=== PATIENT | male | born 1965 | race African-American/Black ===

== ENCOUNTER 2019-10-10 13:57 | Inpatient (IN) ==
[2019-10-10] MEDS ORDERED: ceFAZolin 1,000 MG VIAL IM ONE (14:18)
[2019-10-10] MEDS ORDERED: VANCOMYCIN INJ 1,000 MG in SODIUM CHLORIDE 0.9% 250 ML IV STA (14:30)
[2019-10-10 15:17] LABS: Basophils % 0.7 % (0.0-0.8); Eosinophils # 0.3 10*3/uL (0.0-0.87); Eosinophils % 4.8 % (0.00-10.9); Hematocrit 25.4 VOL% (42.0-52.0); Hemoglobin 8.1 GM/DL (14.0-18.0); Immature Granulocytes % 0.2 %; Immature Granulocytes Absolute 0.01 #; Lymphocytes # 0.7 10*3/uL (1.4-4.0); Lymphocytes % 10.7 % (21.2-54.2); Mean Corpuscular HGB Conc 31.9 GM/DL (32-36); Mean Corpuscular Volume 91.7 FL (87-102); Mean Platelet Volume 11.4 FL (9.6-12.0); Monocytes % 11.2 % (1.7-12.7); Neutrophils % 72.4 % (38.7-73.9); Platelet Count 139 T/CUMM (130-400); Red Blood Count 2.77 MC/CUMM (3.8-5.5); Red Cell Distribution Width 15.8 % (9.3-17.3); White Blood Count 6.1 T/CUMM (4-12)
[2019-10-10] MEDS ORDERED: VANCOMYCIN INJ 1,500 MG in SODIUM CHLORIDE 0.9% 250 ML IV SCH (15:30)
[2019-10-10] MEDS ORDERED: PIPERACILLIN/TAZOBACTAM 3,375 MG in SODIUM CHLORIDE 0.9% 100 ML IV SCH (15:30)
[2019-10-10] MEDS ORDERED: hydrALAZINE 20 MG/1 ML VIAL IV PRN (15:36)
[2019-10-10 15:44] LABS: Albumin 2.8 G/DL (3.4-5.0); Bilirubin,Total 0.5 MG/DL (0.2-1.0); Calcium 8.1 MG/DL (8.5-10.1); Osmolality,Calculated 288.3 MOS/KG (273-304); Total Protein 7.3 G/DL (6.4-8.3)
[2019-10-10] MEDS ORDERED: VANCOMYCIN INJ 750 MG in SODIUM CHLORIDE 0.9% 250 ML IV PRN (16:39)
[2019-10-10] MEDS ORDERED: VANCOMYCIN INJ 1,000 MG in SODIUM CHLORIDE 0.9% 250 ML IV ONE (17:00)
[2019-10-10] MEDS: PIPERACILLIN/TAZOBACTAM 3,375 MG in SODIUM CHLORIDE 0.9% 100 ML IV SCH (18:06)
[2019-10-10] MEDS: CYANOCOBALAMIN 500 MCG TABLET PO SCH (20:33)
[2019-10-10] MEDS: METOPROLOL TARTRATE 50 MG TABLET PO SCH (20:33)
[2019-10-10] MEDS: MINOXIDIL 2.5 MG TABLET PO SCH (20:33)
[2019-10-10] MEDS: HEPARIN 5,000 UNIT/1 ML VIAL SUBCUT SCH (20:33)
[2019-10-10 22:20] LABS: Apearance,Urine CLEAR (Clear); Bilirubin,Urine Negative (Negative); Blood, Urine Negative (Negative); Glucose,Urine (UA) 50 mg/dL (Negative); Ketones,Urine Negative (Negative); Nitrite,Urine Negative (Negative); Protein,Urine 100 MG/DL; RBC,Urine 1 /HPF (0-4); Urine Color Yellow (Yellow); Urine Specific Gravity 1.009 (1.001-1.035); Urine Urobilinogen < 2.0 EU/DL (0.2-1.0); WBC,Urine 2 /HPF (0-6)
[2019-10-11] MEDS: PIPERACILLIN/TAZOBACTAM 3,375 MG in SODIUM CHLORIDE 0.9% 100 ML IV SCH ×2 (05:27→18:25)
[2019-10-11 05:57] LABS: Basophils % 0.8 % (0.0-0.8); Eosinophils # 0.4 10*3/uL (0.0-0.87); Eosinophils % 8.5 % (0.00-10.9); Hematocrit 24.3 VOL% (42.0-52.0); Hemoglobin 7.8 GM/DL (14.0-18.0); Immature Granulocytes % 0.2 %; Immature Granulocytes Absolute 0.01 #; Lymphocytes # 0.7 10*3/uL (1.4-4.0); Lymphocytes % 12.9 % (21.2-54.2); Mean Corpuscular HGB Conc 32.1 GM/DL (32-36); Mean Corpuscular Volume 91.4 FL (87-102); Mean Platelet Volume 11.9 FL (9.6-12.0); Neutrophils % 65.6 % (38.7-73.9); Platelet Count 146 T/CUMM (130-400); Red Blood Count 2.66 MC/CUMM (3.8-5.5); Red Cell Distribution Width 15.4 % (9.3-17.3); White Blood Count 5.2 T/CUMM (4-12)
[2019-10-11 06:28] LABS: Alanine Aminotransferase < 9 U/L (16-61); Albumin 2.6 G/DL (3.4-5.0); Alkaline Phosphatase 57 U/L (45-117); Aspartate Amino Transferase 7 U/L (0-37); Blood Urea Nitrogen 43 MG/DL (7-18); Calcium 7.7 MG/DL (8.5-10.1); Estimated Glom Filtration Rate 6 ML/MIN; Glucose 81 MG/DL (74-106); Osmolality,Calculated 292.1 MOS/KG (273-304); Total Protein 6.8 G/DL (6.4-8.3)
[2019-10-11] MEDS ORDERED: SODIUM CHLORIDE 0.9% 1,000 ML IV PRN ×2 (09:06→09:09)
[2019-10-11] MEDS: HEPARIN 5,000 UNIT/1 ML VIAL SUBCUT SCH ×2 (11:37→21:13)
[2019-10-11] MEDS: LOSARTAN 50 MG TABLET PO SCH (14:59)
[2019-10-11] MEDS: MINOXIDIL 2.5 MG TABLET PO SCH ×2 (14:59→21:11)
[2019-10-11] MEDS: METOPROLOL TARTRATE 50 MG TABLET PO SCH ×2 (15:00→21:11)
[2019-10-11] MEDS: CYANOCOBALAMIN 500 MCG TABLET PO SCH ×2 (15:00→21:11)
[2019-10-11] MEDS ORDERED: EPOETIN ALFA 10,000 UNIT/1 ML VIAL IV PRN (15:45)
[2019-10-12 05:42] LABS: Basophils % 0.6 % (0.0-0.8); Eosinophils # 0.4 10*3/uL (0.0-0.87); Eosinophils % 7.8 % (0.00-10.9); Hematocrit 24.2 VOL% (42.0-52.0); Hemoglobin 7.6 GM/DL (14.0-18.0); Immature Granulocytes % 0.4 %; Immature Granulocytes Absolute 0.02 #; Lymphocytes # 0.9 10*3/uL (1.4-4.0); Lymphocytes % 17.4 % (21.2-54.2); Mean Corpuscular HGB Conc 31.4 GM/DL (32-36); Mean Corpuscular Volume 91.3 FL (87-102); Mean Platelet Volume 11.5 FL (9.6-12.0); Monocytes % 9.6 % (1.7-12.7); Neutrophils % 64.2 % (38.7-73.9); Platelet Count 160 T/CUMM (130-400); Red Blood Count 2.65 MC/CUMM (3.8-5.5); Red Cell Distribution Width 15.3 % (9.3-17.3)
[2019-10-12 06:06] LABS: Alanine Aminotransferase < 9 U/L (16-61); Albumin 2.3 G/DL (3.4-5.0); Alkaline Phosphatase 66 U/L (45-117); Aspartate Amino Transferase 5 U/L (0-37); Blood Urea Nitrogen 51 MG/DL (7-18); Calcium 7.9 MG/DL (8.5-10.1); Estimated Glom Filtration Rate 5 ML/MIN; Glucose 86 MG/DL (74-106); Total Protein 6.5 G/DL (6.4-8.3)
[2019-10-12] MEDS: PIPERACILLIN/TAZOBACTAM 3,375 MG in SODIUM CHLORIDE 0.9% 100 ML IV SCH ×2 (06:16→19:36)
[2019-10-12] MEDS: HEPARIN 5,000 UNIT/1 ML VIAL SUBCUT SCH ×2 (08:21→19:34)
[2019-10-12] MEDS: CYANOCOBALAMIN 500 MCG TABLET PO SCH ×2 (08:21→21:19)
[2019-10-12 10:39] LABS: % Iron Saturation 53.7 % (18-50); Ferritin 815.7 ng/ml (26-388)
[2019-10-12 11:21] LABS: Hepatitis B Surface Ag Quant < 0.10 Index; Hepatitis B Surface Ag Result Negative (Negative)
[2019-10-12] MEDS: CALCIUM ACETATE 667 MG CAPSULE PO SCH ×2 (13:04→17:56)
[2019-10-12] MEDS ORDERED: VANCOMYCIN INJ 750 MG in SODIUM CHLORIDE 0.9% 250 ML IV ONE (17:00)
[2019-10-12] MEDS: METOPROLOL TARTRATE 50 MG TABLET PO SCH ×2 (17:50→21:19)
[2019-10-12] MEDS: MINOXIDIL 2.5 MG TABLET PO SCH ×2 (17:55→21:19)
[2019-10-12] MEDS: LOSARTAN 50 MG TABLET PO SCH (17:57)
[2019-10-13 05:33] LABS: Basophils % 0.8 % (0.0-0.8); Eosinophils # 0.4 10*3/uL (0.0-0.87); Eosinophils % 8.6 % (0.00-10.9); Hematocrit 28.9 VOL% (42.0-52.0); Immature Granulocytes % 0.2 %; Immature Granulocytes Absolute 0.01 #; Lymphocytes # 0.7 10*3/uL (1.4-4.0); Lymphocytes % 14.6 % (21.2-54.2); Mean Corpuscular HGB Conc 32.2 GM/DL (32-36); Mean Corpuscular Volume 88.9 FL (87-102); Mean Platelet Volume 11.4 FL (9.6-12.0); Neutrophils % 64.8 % (38.7-73.9); Platelet Count 171 T/CUMM (130-400); Red Cell Distribution Width 15.2 % (9.3-17.3); White Blood Count 4.7 T/CUMM (4-12)
[2019-10-13 06:00] LABS: Alanine Aminotransferase < 6 U/L (16-61); Albumin 2.3 G/DL (3.4-5.0); Alkaline Phosphatase 62 U/L (45-117); Aspartate Amino Transferase 6 U/L (0-37); Blood Urea Nitrogen 31 MG/DL (7-18); Calcium 8.4 MG/DL (8.5-10.1); Estimated Glom Filtration Rate 7 ML/MIN; Glucose 93 MG/DL (74-106); Osmolality,Calculated 274.2 MOS/KG (273-304); Total Protein 6.9 G/DL (6.4-8.3)
[2019-10-13] MEDS: PIPERACILLIN/TAZOBACTAM 3,375 MG in SODIUM CHLORIDE 0.9% 100 ML IV SCH (06:01)
[2019-10-13 06:07] LABS: Red Blood Count 3.25 MC/CUMM (3.8-5.5)
[2019-10-13 06:08] LABS: Hemoglobin 9.3 GM/DL (14.0-18.0)
[2019-10-13] MEDS ORDERED: LEVOFLOXACIN INJ 500 MG in PREMIX 1 EACH IV SCH ×2 (07:00→10:00)
[2019-10-13] MEDS: CYANOCOBALAMIN 500 MCG TABLET PO SCH ×2 (08:34→20:30)
[2019-10-13] MEDS: LOSARTAN 50 MG TABLET PO SCH (08:35)
[2019-10-13] MEDS: CALCIUM ACETATE 667 MG CAPSULE PO SCH ×3 (08:35→17:33)
[2019-10-13] MEDS: METOPROLOL TARTRATE 50 MG TABLET PO SCH ×2 (08:35→20:29)
[2019-10-13] MEDS: MINOXIDIL 2.5 MG TABLET PO SCH ×2 (08:36→20:29)
[2019-10-13] MEDS: HEPARIN 5,000 UNIT/1 ML VIAL SUBCUT SCH ×2 (10:15→20:30)
[2019-10-14 06:59] LABS: Basophils % 0.8 % (0.0-0.8); Eosinophils # 0.4 10*3/uL (0.0-0.87); Eosinophils % 7.8 % (0.00-10.9); Hematocrit 27.2 VOL% (42.0-52.0); Immature Granulocytes % 0.2 %; Immature Granulocytes Absolute 0.01 #; Lymphocytes # 0.8 10*3/uL (1.4-4.0); Lymphocytes % 17.3 % (21.2-54.2); Mean Corpuscular HGB Conc 33.1 GM/DL (32-36); Mean Corpuscular Volume 88.6 FL (87-102); Mean Platelet Volume 10.2 FL (9.6-12.0); Monocytes % 11.2 % (1.7-12.7); Neutrophils % 62.7 % (38.7-73.9); Platelet Count 158 T/CUMM (130-400); Red Blood Count 3.07 MC/CUMM (3.8-5.5); White Blood Count 4.7 T/CUMM (4-12)
[2019-10-14 07:34] LABS: Albumin 2.3 G/DL (3.4-5.0); Bilirubin,Total 0.4 MG/DL (0.2-1.0); Osmolality,Calculated 281.8 MOS/KG (273-304); Total Protein 6.8 G/DL (6.4-8.3)
[2019-10-14] MEDS: CALCIUM ACETATE 667 MG CAPSULE PO SCH ×3 (09:12→16:48)
[2019-10-14] MEDS: CYANOCOBALAMIN 500 MCG TABLET PO SCH ×2 (09:13→21:03)
[2019-10-14] MEDS: MINOXIDIL 2.5 MG TABLET PO SCH ×2 (09:13→21:03)
[2019-10-14] MEDS: METOPROLOL TARTRATE 50 MG TABLET PO SCH ×2 (09:13→21:03)
[2019-10-14] MEDS: LOSARTAN 50 MG TABLET PO SCH (09:13)
[2019-10-14] MEDS: HEPARIN 5,000 UNIT/1 ML VIAL SUBCUT SCH ×2 (09:22→21:03)
[2019-10-14] MEDS ORDERED: ceFAZolin 2,000 MG in PREMIX 1 EACH IV ONE (10:00)
[2019-10-15] MEDS: CALCIUM ACETATE 667 MG CAPSULE PO SCH ×2 (08:34→13:48)
[2019-10-15] MEDS: MINOXIDIL 2.5 MG TABLET PO SCH (08:34)
[2019-10-15] MEDS: LOSARTAN 50 MG TABLET PO SCH (08:34)
[2019-10-15] MEDS: METOPROLOL TARTRATE 50 MG TABLET PO SCH (08:35)
[2019-10-15] MEDS: CYANOCOBALAMIN 500 MCG TABLET PO SCH (08:35)
[2019-10-15] MEDS: HEPARIN 5,000 UNIT/1 ML VIAL SUBCUT SCH (08:36)
[2019-10-15 16:53] VITALS: BP 160/72
[2019-10-15] MEDS ORDERED: ceFAZolin 2,000 MG in PREMIX 1 EACH IV SCH (17:00)
[2019-10-19] MEDS ORDERED: ceFAZolin 3,000 MG in SYRINGE 1 EACH IV SCH (17:00)
== END 2019-10-15 16:25 | disposition home or self-care (01) | DRG 727 ==
LOC: N.EDINP 13:57 → N.ED 13:57 → N.5E 16:30
PROVIDERS: ADMIT Internal Medicine; ATTEND Internal Medicine

== ENCOUNTER 2020-01-23 19:55 | Inpatient (IN) ==
[2020-01-24 01:44] LABS: Basophils % 0.6 % (0.0-0.8); Eosinophils # 0.4 10*3/uL (0.0-0.87); Eosinophils % 7.8 % (0.00-10.9); Hematocrit 20.7 VOL% (42.0-52.0); Immature Granulocytes % 0.2 %; Immature Granulocytes Absolute 0.01 #; Lymphocytes # 0.8 10*3/uL (1.4-4.0); Lymphocytes % 16.6 % (21.2-54.2); Monocytes % 10.8 % (1.7-12.7); Platelet Count 186 T/CUMM (130-400); Red Blood Count 2.09 MC/CUMM (3.8-5.5); Red Cell Distribution Width 16.7 % (9.3-17.3)
[2020-01-24 01:47] LABS: Hemoglobin 6.2 GM/DL (14.0-18.0)
[2020-01-24 01:59] LABS: Alanine Aminotransferase 15 U/L (16-61); Albumin 2.8 G/DL (3.4-5.0); Alkaline Phosphatase 63 U/L (45-117); Aspartate Amino Transferase 13 U/L (0-37); Bilirubin,Total < 0.39 MG/DL (0.2-1.0); Blood Urea Nitrogen 24 MG/DL (7-18); Calcium 9.1 MG/DL (8.5-10.1); Estimated Glom Filtration Rate 12 ML/MIN; Glucose 92 MG/DL (74-106); Osmolality,Calculated 286.1 MOS/KG (273-304); Total Protein 6.1 G/DL (6.4-8.3)
[2020-01-24] MEDS ORDERED: ONDANSETRON 4 MG/2 ML VIAL IV PRN (04:19)
[2020-01-24] MEDS ORDERED: ACETAMINOPHEN 325 MG TABLET PO PRN (04:19)
[2020-01-24] MEDS ORDERED: SODIUM CHLORIDE 0.9% 1,000 ML IV PRN (04:22)
[2020-01-24] MEDS ORDERED: Ferric Citrate [Auryxia] 420 MG PO SCH (08:00)
[2020-01-24] MEDS: LOSARTAN 50 MG TABLET PO SCH (12:03)
[2020-01-24] MEDS: PANTOPRAZOLE 40 MG TABLET PO SCH (12:03)
[2020-01-24] MEDS: minoxidiL 2.5 MG TABLET PO SCH ×2 (12:04→22:02)
[2020-01-24] MEDS: METOPROLOL TARTRATE 50 MG TABLET PO SCH ×2 (12:04→22:01)
[2020-01-24] MEDS: CYANOCOBALAMIN 500 MCG TABLET PO SCH ×2 (12:05→22:01)
[2020-01-24 18:46] LABS: Hematocrit 23.1 VOL% (42.0-52.0); Hemoglobin 7.3 GM/DL (14.0-18.0)
[2020-01-25 06:34] LABS: Basophils % 0.6 % (0.0-0.8); Eosinophils # 0.4 10*3/uL (0.0-0.87); Eosinophils % 7.2 % (0.00-10.9); Hematocrit 24.1 VOL% (42.0-52.0); Hemoglobin 7.5 GM/DL (14.0-18.0); Immature Granulocytes % 0.4 %; Immature Granulocytes Absolute 0.02 #; Lymphocytes # 0.4 10*3/uL (1.4-4.0); Lymphocytes % 7.4 % (21.2-54.2); Mean Corpuscular HGB Conc 31.1 GM/DL (32-36); Mean Corpuscular Volume 95.6 FL (87-102); Monocytes % 10.2 % (1.7-12.7); Neutrophils % 74.2 % (38.7-73.9); Platelet Count 130 T/CUMM (130-400); Red Blood Count 2.52 MC/CUMM (3.8-5.5); Red Cell Distribution Width 16.2 % (9.3-17.3); White Blood Count 5.1 T/CUMM (4-12)
[2020-01-25] MEDS: CYANOCOBALAMIN 500 MCG TABLET PO SCH ×2 (08:08→20:26)
[2020-01-25] MEDS: minoxidiL 2.5 MG TABLET PO SCH ×2 (08:08→20:26)
[2020-01-25] MEDS: METOPROLOL TARTRATE 50 MG TABLET PO SCH ×2 (08:08→20:26)
[2020-01-25] MEDS: LOSARTAN 50 MG TABLET PO SCH (08:09)
[2020-01-25] MEDS: PANTOPRAZOLE 40 MG TABLET PO SCH (08:09)
[2020-01-25] MEDS ORDERED: HEPARIN 10,000 UNIT/10 ML VIAL IV SCH (15:00)
[2020-01-26 05:28] LABS: Basophils % 0.4 % (0.0-0.8); Eosinophils # 0.3 10*3/uL (0.0-0.87); Eosinophils % 6.9 % (0.00-10.9); Hematocrit 21.8 VOL% (42.0-52.0); Hemoglobin 7.1 GM/DL (14.0-18.0); Immature Granulocytes % 0.4 %; Immature Granulocytes Absolute 0.02 #; Lymphocytes # 0.5 10*3/uL (1.4-4.0); Lymphocytes % 11.5 % (21.2-54.2); Mean Corpuscular HGB Conc 32.6 GM/DL (32-36); Mean Corpuscular Volume 92.8 FL (87-102); Mean Platelet Volume 10.5 FL (9.6-12.0); Monocytes % 10.8 % (1.7-12.7); Platelet Count 111 T/CUMM (130-400); Red Blood Count 2.35 MC/CUMM (3.8-5.5); Red Cell Distribution Width 15.7 % (9.3-17.3); White Blood Count 4.6 T/CUMM (4-12)
[2020-01-26 05:45] LABS: Calcium 8.7 MG/DL (8.5-10.1); Osmolality,Calculated 277.8 MOS/KG (273-304)
[2020-01-26] MEDS: BISACODYL 5 MG TABLET PO SCH ×3 (06:45→22:12)
[2020-01-26] MEDS: METOPROLOL TARTRATE 50 MG TABLET PO SCH ×2 (08:58→20:31)
[2020-01-26] MEDS: PANTOPRAZOLE 40 MG TABLET PO SCH (08:59)
[2020-01-26] MEDS: minoxidiL 2.5 MG TABLET PO SCH ×2 (08:59→20:31)
[2020-01-26] MEDS: CYANOCOBALAMIN 500 MCG TABLET PO SCH ×2 (08:59→20:31)
[2020-01-26] MEDS: LOSARTAN 50 MG TABLET PO SCH (08:59)
[2020-01-26] MEDS ORDERED: SODIUM CHLORIDE 0.9% 1,000 ML IV PRN (10:37)
[2020-01-26] MEDS ORDERED: POLYETHYLENE GLYCOL 3350/ELECTROLYTES 4,000 ML BOTTLE PO ONE (14:00)
[2020-01-26] MEDS: guaiFENesin 200 MG/10 ML UDCUP PO PRN ×3 (14:31→22:27)
[2020-01-26] MEDS ORDERED: MAGNESIUM CITRATE 300 ML BOTTLE PO ONE (21:00)
[2020-01-27 01:12] LABS: Calcium 8.4 MG/DL (8.5-10.1)
[2020-01-27 01:15] LABS: Basophils % 0.4 % (0.0-0.8); Eosinophils # 0.2 10*3/uL (0.0-0.87); Eosinophils % 3.3 % (0.00-10.9); Hematocrit 25.1 VOL% (42.0-52.0); Hematocrit 26.3 VOL% (42.0-52.0); Hemoglobin 8.3 GM/DL (14.0-18.0); Immature Granulocytes % 0.1 %; Immature Granulocytes Absolute 0.01 #; Lymphocytes # 0.4 10*3/uL (1.4-4.0); Lymphocytes % 5.8 % (21.2-54.2); Mean Corpuscular HGB Conc 31.6 GM/DL (32-36); Mean Corpuscular Volume 93.3 FL (87-102); Mean Platelet Volume 10.4 FL (9.6-12.0); Monocytes % 9.1 % (1.7-12.7); Neutrophils % 81.3 % (38.7-73.9); Platelet Count 103 T/CUMM (130-400); Red Blood Count 2.82 MC/CUMM (3.8-5.5); Red Cell Distribution Width 15.7 % (9.3-17.3); White Blood Count 6.9 T/CUMM (4-12)
[2020-01-27] MEDS: SODIUM CHLORIDE 0.9% 1,000 ML IV SCH (07:25)
[2020-01-27] MEDS ORDERED: LIDOCAINE 2% 5 ML VIAL ONE (09:00)
[2020-01-27] MEDS ORDERED: propofoL 200 MG/20 ML VIAL IV ONE (09:00)
[2020-01-27] MEDS: METOPROLOL TARTRATE 50 MG TABLET PO SCH ×2 (19:14→20:54)
[2020-01-27] MEDS: minoxidiL 2.5 MG TABLET PO SCH ×2 (19:14→20:53)
[2020-01-27] MEDS: CYANOCOBALAMIN 500 MCG TABLET PO SCH ×2 (19:15→20:54)
[2020-01-27] MEDS: LOSARTAN 50 MG TABLET PO SCH (20:31)
[2020-01-27] MEDS: PANTOPRAZOLE 40 MG TABLET PO SCH (20:54)
[2020-01-28 05:12] LABS: Basophils % 0.5 % (0.0-0.8); Eosinophils # 0.2 10*3/uL (0.0-0.87); Eosinophils % 3.3 % (0.00-10.9); Hematocrit 24.6 VOL% (42.0-52.0); Hemoglobin 7.9 GM/DL (14.0-18.0); Immature Granulocytes % 0.5 %; Immature Granulocytes Absolute 0.03 #; Lymphocytes # 0.5 10*3/uL (1.4-4.0); Lymphocytes % 7.5 % (21.2-54.2); Mean Corpuscular HGB Conc 32.1 GM/DL (32-36); Mean Corpuscular Volume 91.4 FL (87-102); Mean Platelet Volume 10.7 FL (9.6-12.0); Monocytes % 10.5 % (1.7-12.7); Neutrophils % 77.7 % (38.7-73.9); Platelet Count 76 T/CUMM (130-400); Red Blood Count 2.69 MC/CUMM (3.8-5.5); Red Cell Distribution Width 14.9 % (9.3-17.3); White Blood Count 6.6 T/CUMM (4-12)
[2020-01-28 05:36] LABS: Eosinophils 6 % (0-10); Hypochromasia 2+; Lymphocytes 10 % (20-55); Platelet Estimate Decreased; Segmented Neutrophils 77 % (50-85); Total Cells Counted 100
[2020-01-28] MEDS: LOSARTAN 50 MG TABLET PO SCH (08:44)
[2020-01-28] MEDS: CYANOCOBALAMIN 500 MCG TABLET PO SCH (08:45)
[2020-01-28] MEDS: PANTOPRAZOLE 40 MG TABLET PO SCH (08:45)
[2020-01-28] MEDS: minoxidiL 2.5 MG TABLET PO SCH (10:47)
[2020-01-28] MEDS: SODIUM CHLORIDE 0.9% 1,000 ML IV SCH (10:47)
[2020-01-28] MEDS: METOPROLOL TARTRATE 50 MG TABLET PO SCH (10:47)
[2020-01-28 15:39] VITALS: BP 124/63
== END 2020-01-28 15:15 | disposition home or self-care (01) | DRG 377 ==
LOC: N.ED 19:55 → SUATTDRO 01-24 04:19 → N.EDINP 01-24 04:19 → N.5E 01-24 04:41
PROVIDERS: ADMIT Internal Medicine; ATTEND Internal Medicine

== ENCOUNTER 2020-02-03 08:20 | Inpatient (IN) ==
[2020-02-03] MEDS ORDERED: PANTOPRAZOLE 40 MG VIAL IV STA (09:13)
[2020-02-03] MEDS ORDERED: METOCLOPRAMIDE 10 MG/2 ML VIAL IV STA (09:13)
[2020-02-03] MEDS ORDERED: ONDANSETRON 4 MG/2 ML VIAL IV STA (09:13)
[2020-02-03] MEDS ORDERED: ALUM/MAG/SIMETH/LIDO VISC 1:1 30 ML BOTTLE PO STA (09:13)
[2020-02-03] MEDS ORDERED: FUROSEMIDE 40 MG/4 ML VIAL IV STA (11:30)
[2020-02-03 12:54] LABS: Alanine Aminotransferase 51 U/L (16-61); Albumin 2.5 G/DL (3.4-5.0); Alkaline Phosphatase 238 U/L (45-117); Amylase 67 U/L (25-115); Aspartate Amino Transferase 45 U/L (0-37); Blood Urea Nitrogen 47 MG/DL (7-18); Calcium 8.8 MG/DL (8.5-10.1); Estimated Glom Filtration Rate 8 ML/MIN; Glucose 100 MG/DL (74-106); Osmolality,Calculated 269.9 MOS/KG (273-304)
[2020-02-03 12:55] LABS: Troponin I 0.048 NG/ML (0.00-0.045)
[2020-02-03] MEDS ORDERED: ONDANSETRON 4 MG/2 ML VIAL IV PRN (14:31)
[2020-02-03] MEDS ORDERED: ACETAMINOPHEN 325 MG TABLET PO PRN (14:31)
[2020-02-03] MEDS: AURYXIA PO SCH (16:38)
[2020-02-03] MEDS: ALUM/MAG/SIMETH/LIDO VISC 1:1 30 ML BOTTLE PO PRN (19:15)
[2020-02-03] MEDS: METOPROLOL TARTRATE 50 MG TABLET PO SCH (20:31)
[2020-02-03] MEDS: CYANOCOBALAMIN 500 MCG TABLET PO SCH (20:31)
[2020-02-04] MEDS: ALUM/MAG/SIMETH/LIDO VISC 1:1 30 ML BOTTLE PO PRN ×3 (04:06→15:07)
[2020-02-04 04:47] LABS: Basophils % 0.3 % (0.0-0.8); Eosinophils % 0.3 % (0.00-10.9); Hematocrit 18.6 VOL% (42.0-52.0); Immature Granulocytes % 0.6 %; Immature Granulocytes Absolute 0.07 #; Lymphocytes # 0.9 10*3/uL (1.4-4.0); Lymphocytes % 7.9 % (21.2-54.2); Mean Corpuscular HGB Conc 32.3 GM/DL (32-36); Mean Corpuscular Volume 91.6 FL (87-102); Mean Platelet Volume 11.4 FL (9.6-12.0); Monocytes % 13.4 % (1.7-12.7); Neutrophils % 77.5 % (38.7-73.9); Platelet Count 190 T/CUMM (130-400); Red Blood Count 2.03 MC/CUMM (3.8-5.5); Red Cell Distribution Width 15.9 % (9.3-17.3)
[2020-02-04] MEDS ORDERED: SODIUM CHLORIDE 0.9% 1,000 ML IV PRN (05:17)
[2020-02-04 05:21] LABS: Calcium 8.8 MG/DL (8.5-10.1); Osmolality,Calculated 276.8 MOS/KG (273-304)
[2020-02-04] MEDS ORDERED: PANTOPRAZOLE 40 MG TABLET PO SCH (09:00)
[2020-02-04] MEDS: CYANOCOBALAMIN 500 MCG TABLET PO SCH ×2 (09:20→20:47)
[2020-02-04] MEDS: METOPROLOL TARTRATE 50 MG TABLET PO SCH ×2 (09:20→20:48)
[2020-02-04] MEDS: AURYXIA PO SCH ×3 (09:21→19:24)
[2020-02-04] MEDS: LOSARTAN 50 MG TABLET PO SCH (09:23)
[2020-02-04 10:08] LABS: Folate 5.9 NG/ML (5.4-24.0); Vitamin B12 > 2000 PG/ML (211-911)
[2020-02-04 10:14] LABS: Ferritin 4525.4 ng/ml (26-388)
[2020-02-04] MEDS ORDERED: MORPHINE 4 MG/1 ML VIAL IV ONE (10:23)
[2020-02-04] MEDS: NITROGLYCERIN SL 0.4 MG TABLET SL PRN ×2 (12:05→15:07)
[2020-02-04] MEDS ORDERED: traMADol 50 MG TABLET PO PRN (13:36)
[2020-02-04] MEDS ORDERED: ACETAMINOPHEN 500 MG TABLET PO PRN (13:37)
[2020-02-04 13:44] LABS: Troponin I 0.049 NG/ML (0.00-0.045)
[2020-02-04] MEDS: MORPHINE 4 MG/1 ML VIAL IV PRN ×2 (15:32→20:33)
[2020-02-04] MEDS: amLODIPine 5 MG TABLET PO SCH (16:07)
[2020-02-04] MEDS: PANTOPRAZOLE 40 MG VIAL IV SCH (19:17)
[2020-02-05] MEDS: ALUM/MAG/SIMETH/LIDO VISC 1:1 30 ML BOTTLE PO PRN (00:07)
[2020-02-05] MEDS: MORPHINE 4 MG/1 ML VIAL IV PRN (01:19)
[2020-02-05 02:54] LABS: Basophils % 0.2 % (0.0-0.8); Eosinophils % 0.1 % (0.00-10.9); Hematocrit 26.9 VOL% (42.0-52.0); Immature Granulocytes % 3.1 %; Immature Granulocytes Absolute 0.56 #; Lymphocytes # 1.5 10*3/uL (1.4-4.0); Lymphocytes % 8.3 % (21.2-54.2); Mean Corpuscular HGB Conc 28.3 GM/DL (32-36); Mean Corpuscular Volume 104.3 FL (87-102); Mean Platelet Volume 11.3 FL (9.6-12.0); Monocytes % 8.1 % (1.7-12.7); NRBC # 0.06 10*3/uL; Neutrophils % 80.2 % (38.7-73.9); Platelet Count 136 T/CUMM (130-400); Red Blood Count 2.58 MC/CUMM (3.8-5.5); Red Cell Distribution Width 16.1 % (9.3-17.3); White Blood Count 17.9 T/CUMM (4-12)
[2020-02-05] MEDS ORDERED: CISATRACURIUM 10 MG/5 ML VIAL IV ONE (02:55)
[2020-02-05] MEDS ORDERED: fentaNYL 100 MCG/2 ML VIAL IV ONE (02:56)
[2020-02-05 02:58] LABS: Hemoglobin 7.6 GM/DL (14.0-18.0)
[2020-02-05] MEDS ORDERED: hydrALAZINE 20 MG/1 ML VIAL IV ONE (03:01)
[2020-02-05 03:15] LABS: INR 1.7; PT Patient Result 18.6 SECS (9.6-12.2)
[2020-02-05 03:18] LABS: Partial Thromboplastin Time 42.9 SECS (20.8-36.0)
[2020-02-05 03:31] LABS: Troponin I 0.411 NG/ML (0.00-0.045)
[2020-02-05 04:05] LABS: Allen Test Positive; Pt O2 Delivery Device Ventilator
[2020-02-05 04:06] LABS: ABG Base Excess -18.6 MMOL/L (-2.5-2.5); ABG Oxygen Saturation 70.3 % (95-100); ABG PCO2 43.4 MM HG (35-48); ABG PO2 58.9 MM HG (80-95); ABG TCO2 11.3 MMOL/L (23-27)
[2020-02-05] MEDS ORDERED: SODIUM BICARBONATE 50 MEQ/50 ML VIAL IV STA (04:19)
[2020-02-05] MEDS: fentaNYL INJ 1,250 MCG in SODIUM CHLORIDE 0.9% 225 ML IV PRN ×2 (04:35→17:24)
[2020-02-05] MEDS: CISATRACURIUM 200 MG in SODIUM CHLORIDE 0.9% 180 ML IV SCH ×2 (04:37→22:52)
[2020-02-05 04:40] LABS: Albumin 2.2 G/DL (3.4-5.0); Calcium 8.7 MG/DL (8.5-10.1); Osmolality,Calculated 275.2 MOS/KG (273-304); Total Protein 6.8 G/DL (6.4-8.3)
[2020-02-05] MEDS: DEXTROSE 10% 250 ML BAG IV PRN ×3 (05:06→21:30)
[2020-02-05] MEDS: PANTOPRAZOLE 40 MG VIAL IV SCH ×2 (06:25→18:08)
[2020-02-05 07:41] LABS: ABG Base Excess -12.6 MMOL/L (-2.5-2.5); ABG HCO3 14.4 MMOL/L (20-26); ABG Oxygen Saturation 95.3 % (95-100); ABG PCO2 49.5 MM HG (35-48); ABG TCO2 15.8 MMOL/L (23-27)
[2020-02-05 07:43] LABS: ABG PH 7.122 (7.35-7.45)
[2020-02-05] MEDS: AURYXIA PO SCH ×3 (08:53→16:31)
[2020-02-05] MEDS: INSULIN REGULAR 100 UNIT/ML IV SCH ×4 (09:13→20:34)
[2020-02-05] MEDS: METOPROLOL TARTRATE 50 MG TABLET PO SCH ×2 (09:13→20:35)
[2020-02-05] MEDS: LOSARTAN 50 MG TABLET PO SCH (09:38)
[2020-02-05] MEDS: DEXTROSE 5% NACL 0.9% 1,000 ML IV SCH ×2 (09:39→22:51)
[2020-02-05] MEDS: amLODIPine 5 MG TABLET PO SCH (09:39)
[2020-02-05] MEDS: CYANOCOBALAMIN 500 MCG TABLET PO SCH ×2 (09:39→20:49)
[2020-02-05 09:42] LABS: Basophils % 0.1 % (0.0-0.8); Eosinophils % 0.2 % (0.00-10.9); Hematocrit 23.7 VOL% (42.0-52.0); Immature Granulocytes % 1.4 %; Immature Granulocytes Absolute 0.29 #; Lymphocytes # 0.8 10*3/uL (1.4-4.0); Lymphocytes % 3.7 % (21.2-54.2); Mean Corpuscular HGB Conc 29.5 GM/DL (32-36); Mean Corpuscular Volume 100.9 FL (87-102); Mean Platelet Volume 10.8 FL (9.6-12.0); NRBC # 0.05 10*3/uL; Neutrophils % 87.6 % (38.7-73.9); Platelet Count 109 T/CUMM (130-400); Red Blood Count 2.35 MC/CUMM (3.8-5.5); Red Cell Distribution Width 16.2 % (9.3-17.3)
[2020-02-05 09:53] LABS: INR 2.3
[2020-02-05] MEDS: MINERAL OIL/PETROLATUM OPH OINT 3.5 GM TUBE BOTH EYES SCH ×3 (09:54→20:49)
[2020-02-05 10:00] LABS: Partial Thromboplastin Time 39.7 SECS (20.8-36.0)
[2020-02-05 10:01] LABS: Band Neutrophils 3 % (0-10); Lymphocytes 4 % (20-55); Segmented Neutrophils 87 % (50-85); Total Cells Counted 100
[2020-02-05 10:02] LABS: Acanthocytes Few; Burr Cells Few; Polychromasia Slight
[2020-02-05 10:03] LABS: Anisocytosis 1+; Hypochromasia Slight; Microcytosis 1+; PT Patient Result 25.3 SECS (9.6-12.2); Platelet Estimate Adequate
[2020-02-05 10:17] LABS: Calcium 8.2 MG/DL (8.5-10.1); Osmolality,Calculated 280.4 MOS/KG (273-304)
[2020-02-05 10:46] LABS: Troponin I 1.72 NG/ML (0.00-0.045)
[2020-02-05 11:09] LABS: ABG Base Excess -10.2 MMOL/L (-2.5-2.5); ABG HCO3 18.3 MMOL/L (20-26); ABG Oxygen Saturation 40.2 % (95-100); ABG PCO2 55.6 MM HG (35-48); Allen Test Positive; Pt O2 Delivery Device Ventilator
[2020-02-05 11:11] LABS: ABG PH 7.136 (7.35-7.45); ABG PO2 34.9 MM HG (80-95)
[2020-02-05 11:57] LABS: ABG Base Excess -9.9 MMOL/L (-2.5-2.5); ABG Oxygen Saturation 99.4 % (95-100); ABG PCO2 42.3 MM HG (35-48); ABG PH 7.223 (7.35-7.45); ABG PO2 278.3 MM HG (80-95); ABG TCO2 18.3 MMOL/L (23-27)
[2020-02-05 15:39] LABS: Basophils % 0.1 % (0.0-0.8); Hematocrit 23.4 VOL% (42.0-52.0); Immature Granulocytes % 1.2 %; Immature Granulocytes Absolute 0.26 #; Lymphocytes # 0.9 10*3/uL (1.4-4.0); Lymphocytes % 3.9 % (21.2-54.2); Mean Corpuscular HGB Conc 29.9 GM/DL (32-36); Mean Corpuscular Volume 98.7 FL (87-102); Mean Platelet Volume 11.9 FL (9.6-12.0); Monocytes % 6.5 % (1.7-12.7); NRBC # 0.03 10*3/uL; Neutrophils % 88.3 % (38.7-73.9); Platelet Count 103 T/CUMM (130-400); Red Blood Count 2.37 MC/CUMM (3.8-5.5); Red Cell Distribution Width 16.2 % (9.3-17.3); White Blood Count 21.5 T/CUMM (4-12)
[2020-02-05 15:50] LABS: INR 2.4
[2020-02-05 15:51] LABS: PT Patient Result 26.4 SECS (9.6-12.2)
[2020-02-05 16:00] LABS: Calcium 7.6 MG/DL (8.5-10.1); Osmolality,Calculated 283.5 MOS/KG (273-304)
[2020-02-05 16:03] LABS: Band Neutrophils 3 % (0-10); Lymphocytes 3 % (20-55); Nucleated Red Blood Cells 2 (0-5); Segmented Neutrophils 86 % (50-85); Total Cells Counted 100
[2020-02-05 16:04] LABS: Anisocytosis 1+; Burr Cells 1+; Hypochromasia 1+; Poikilocytosis 1+; Polychromasia 1+; Target Cells Few
[2020-02-05 16:05] LABS: Platelet Estimate Adequate
[2020-02-05 16:31] LABS: CKMB % 1.1 %
[2020-02-05 16:32] LABS: Troponin I 2.49 NG/ML (0.00-0.045)
[2020-02-05 20:21] LABS: Basophils % 0.1 % (0.0-0.8); Hemoglobin 7.1 GM/DL (14.0-18.0); Immature Granulocytes % 1.1 %; Immature Granulocytes Absolute 0.23 #; Lymphocytes # 0.9 10*3/uL (1.4-4.0); Lymphocytes % 4.3 % (21.2-54.2); Mean Corpuscular HGB Conc 29.6 GM/DL (32-36); Mean Platelet Volume 12.3 FL (9.6-12.0); Monocytes % 6.4 % (1.7-12.7); NRBC # 0.04 10*3/uL; Neutrophils % 88.1 % (38.7-73.9); Platelet Count 96 T/CUMM (130-400); Red Cell Distribution Width 16.2 % (9.3-17.3); White Blood Count 21.3 T/CUMM (4-12)
[2020-02-05 20:30] LABS: INR 2.6; Partial Thromboplastin Time 40.8 SECS (20.8-36.0)
[2020-02-05 20:32] LABS: PT Patient Result 27.5 SECS (9.6-12.2)
[2020-02-05 20:41] LABS: Anisocytosis 1+; Band Neutrophils 6 % (0-10); Burr Cells 1+; Lymphocytes 4 % (20-55); Polychromasia Slight; Segmented Neutrophils 85 % (50-85); Total Cells Counted 100
[2020-02-05 20:42] LABS: Platelet Estimate Adequate; Poikilocytosis Few
[2020-02-05 20:49] LABS: Calcium 7.6 MG/DL (8.5-10.1); Osmolality,Calculated 284.4 MOS/KG (273-304)
[2020-02-05 21:00] LABS: CKMB % 1.2 %
[2020-02-05 21:01] LABS: Troponin I 2.96 NG/ML (0.00-0.045)
[2020-02-05] MEDS ORDERED: INSULIN REGULAR 100 UNIT/ML IV ONE (21:06)
[2020-02-05] MEDS ORDERED: CALCIUM GLUCONATE 1,000 MG in SODIUM CHLORIDE 0.9% 100 ML IV ONE (21:06)
[2020-02-05] MEDS ORDERED: SODIUM BICARBONATE 50 MEQ/50 ML VIAL IV ONE (21:06)
[2020-02-06] MEDS: INSULIN REGULAR 100 UNIT/ML IV SCH ×6 (00:35→20:41)
[2020-02-06] MEDS: CISATRACURIUM 200 MG in SODIUM CHLORIDE 0.9% 180 ML IV SCH ×2 (03:03→17:51)
[2020-02-06 04:02] LABS: ABG Base Excess -13.8 MMOL/L (-2.5-2.5); ABG HCO3 13.5 MMOL/L (20-26); ABG PCO2 46.4 MM HG (35-48); ABG TCO2 14.6 MMOL/L (23-27)
[2020-02-06 04:04] LABS: ABG PH 7.115 (7.35-7.45)
[2020-02-06 04:07] LABS: Basophils % 0.1 % (0.0-0.8); Hematocrit 23.4 VOL% (42.0-52.0); Hemoglobin 6.9 GM/DL (14.0-18.0); Immature Granulocytes % 1.3 %; Immature Granulocytes Absolute 0.22 #; Lymphocytes # 0.8 10*3/uL (1.4-4.0); Mean Corpuscular HGB Conc 29.5 GM/DL (32-36); Mean Corpuscular Volume 101.7 FL (87-102); Mean Platelet Volume 11.7 FL (9.6-12.0); Monocytes % 6.4 % (1.7-12.7); NRBC # 0.07 10*3/uL; Neutrophils % 87.2 % (38.7-73.9); Red Cell Distribution Width 16.4 % (9.3-17.3); White Blood Count 16.9 T/CUMM (4-12)
[2020-02-06 04:09] LABS: Platelet Count 91 T/CUMM (130-400)
[2020-02-06 04:24] LABS: INR 2.9
[2020-02-06 04:25] LABS: PT Patient Result 31.1 SECS (9.6-12.2)
[2020-02-06 04:32] LABS: Osmolality,Calculated 282.4 MOS/KG (273-304)
[2020-02-06 04:38] LABS: Burr Cells Slight; Hypochromasia 1+; Ovalocytes Slight; Platelet Estimate Decreased
[2020-02-06] MEDS ORDERED: SODIUM BICARBONATE 50 MEQ/50 ML VIAL IV ONE ×4 (04:41→22:05)
[2020-02-06] MEDS: DEXTROSE 10% 250 ML BAG IV PRN ×6 (04:45→18:11)
[2020-02-06] MEDS: fentaNYL INJ 1,250 MCG in SODIUM CHLORIDE 0.9% 225 ML IV PRN ×2 (05:15→17:50)
[2020-02-06] MEDS: NOREPINEPHRINE 16 MG in SODIUM CHLORIDE 0.9% 234 ML IV PRN ×2 (06:16→21:34)
[2020-02-06] MEDS: PANTOPRAZOLE 40 MG VIAL IV SCH ×2 (06:20→18:02)
[2020-02-06 06:45] LABS: ABG Base Excess -14.3 MMOL/L (-2.5-2.5); ABG HCO3 13.1 MMOL/L (20-26); ABG Oxygen Saturation 89.3 % (95-100); ABG PCO2 47.8 MM HG (35-48); ABG PO2 78.6 MM HG (80-95); ABG TCO2 14.5 MMOL/L (23-27)
[2020-02-06 06:58] LABS: ABG PH 7.096 (7.35-7.45)
[2020-02-06] MEDS: AURYXIA PO SCH ×3 (08:53→17:05)
[2020-02-06] MEDS: METOPROLOL TARTRATE 50 MG TABLET PO SCH (08:54)
[2020-02-06] MEDS: CYANOCOBALAMIN 500 MCG TABLET PO SCH ×2 (08:54→20:51)
[2020-02-06] MEDS: amLODIPine 5 MG TABLET PO SCH (08:54)
[2020-02-06] MEDS: LOSARTAN 50 MG TABLET PO SCH (08:54)
[2020-02-06] MEDS: MINERAL OIL/PETROLATUM OPH OINT 3.5 GM TUBE BOTH EYES SCH ×3 (08:55→20:51)
[2020-02-06 09:04] LABS: Basophils % 0.1 % (0.0-0.8); Hematocrit 23.6 VOL% (42.0-52.0); Immature Granulocytes % 1.6 %; Immature Granulocytes Absolute 0.24 #; Lymphocytes # 0.8 10*3/uL (1.4-4.0); Lymphocytes % 5.4 % (21.2-54.2); Mean Corpuscular HGB Conc 28.4 GM/DL (32-36); Mean Corpuscular Volume 103.5 FL (87-102); Mean Platelet Volume 11.7 FL (9.6-12.0); Monocytes % 5.8 % (1.7-12.7); NRBC # 0.13 10*3/uL; Neutrophils % 87.1 % (38.7-73.9); Red Blood Count 2.28 MC/CUMM (3.8-5.5); Red Cell Distribution Width 16.6 % (9.3-17.3); White Blood Count 14.9 T/CUMM (4-12)
[2020-02-06 09:05] LABS: Hemoglobin 6.7 GM/DL (14.0-18.0); Platelet Count 91 T/CUMM (130-400)
[2020-02-06 09:14] LABS: INR 3.6
[2020-02-06 09:20] LABS: Calcium 7.6 MG/DL (8.5-10.1); Osmolality,Calculated 284.2 MOS/KG (273-304)
[2020-02-06 09:22] LABS: PT Patient Result 38.8 SECS (9.6-12.2); Partial Thromboplastin Time 49.8 SECS (20.8-36.0)
[2020-02-06 09:30] LABS: Band Neutrophils 9 % (0-10); Lymphocytes 8 % (20-55); Platelet Estimate Decreased; Segmented Neutrophils 81 % (50-85); Total Cells Counted 100
[2020-02-06] MEDS ORDERED: VANCOMYCIN INJ 1,500 MG in SODIUM CHLORIDE 0.9% 500 ML IV ONE (09:30)
[2020-02-06 09:31] LABS: Burr Cells Slight; Hypochromasia 1+
[2020-02-06] MEDS ORDERED: PHYTONADIONE 5 MG/5 ML ORAL.SYR PER TUBE ONE (10:00)
[2020-02-06] MEDS ORDERED: DEXTROSE 10% 1,000 ML IV SCH (11:00)
[2020-02-06 11:36] LABS: Calcium 7.5 MG/DL (8.5-10.1); Osmolality,Calculated 283.4 MOS/KG (273-304)
[2020-02-06] MEDS: DEXTROSE 5% NACL 0.9% 1,000 ML IV SCH (12:16)
[2020-02-06 14:47] LABS: Basophils % 0.1 % (0.0-0.8); Hematocrit 22.7 VOL% (42.0-52.0); Hemoglobin 6.5 GM/DL (14.0-18.0); Immature Granulocytes % 1.5 %; Immature Granulocytes Absolute 0.11 #; Lymphocytes # 0.5 10*3/uL (1.4-4.0); Lymphocytes % 6.7 % (21.2-54.2); Mean Corpuscular HGB Conc 28.6 GM/DL (32-36); Mean Corpuscular Volume 102.7 FL (87-102); Monocytes % 2.1 % (1.7-12.7); NRBC # 0.29 10*3/uL; Neutrophils % 89.6 % (38.7-73.9); Platelet Count 79 T/CUMM (130-400); Red Blood Count 2.21 MC/CUMM (3.8-5.5); Red Cell Distribution Width 16.7 % (9.3-17.3); White Blood Count 7.5 T/CUMM (4-12)
[2020-02-06 15:23] LABS: INR 4.2
[2020-02-06 15:26] LABS: PT Patient Result 45.6 SECS (9.6-12.2); Partial Thromboplastin Time 58.7 SECS (20.8-36.0)
[2020-02-06 16:34] LABS: Basophils % 0.2 % (0.0-0.8); Eosinophils % 22.4 % (0.00-10.9); Hematocrit 24.3 VOL% (42.0-52.0); Hemoglobin 7.2 GM/DL (14.0-18.0); Immature Granulocytes % 1.5 %; Immature Granulocytes Absolute 0.07 #; Lymphocytes # 0.3 10*3/uL (1.4-4.0); Lymphocytes % 6.8 % (21.2-54.2); Mean Corpuscular HGB Conc 29.6 GM/DL (32-36); Mean Platelet Volume 11.7 FL (9.6-12.0); Monocytes % 3.1 % (1.7-12.7); Platelet Count 62 T/CUMM (130-400); Red Blood Count 2.43 MC/CUMM (3.8-5.5); Red Cell Distribution Width 16.2 % (9.3-17.3); White Blood Count 4.6 T/CUMM (4-12)
[2020-02-06 16:44] LABS: INR 4.4
[2020-02-06 16:45] LABS: PT Patient Result 47.5 SECS (9.6-12.2); Partial Thromboplastin Time 63.4 SECS (20.8-36.0)
[2020-02-06 16:56] LABS: ABG Base Excess -12.8 MMOL/L (-2.5-2.5); ABG HCO3 14.5 MMOL/L (20-26); ABG Oxygen Saturation 95.7 % (95-100); ABG PCO2 33.4 MM HG (35-48); ABG PO2 98.6 MM HG (80-95); ABG TCO2 12.8 MMOL/L (23-27)
[2020-02-06 17:10] LABS: CKMB % 1.8 %
[2020-02-06 17:19] LABS: Troponin I 6.97 NG/ML (0.00-0.045)
[2020-02-06 17:27] LABS: Band Neutrophils 8 % (0-10); Lymphocytes 9 % (20-55); Macrocytosis 1+; Nucleated Red Blood Cells 6 (0-5); Platelet Estimate Decreased; Segmented Neutrophils 81 % (50-85); Total Cells Counted 100
[2020-02-06 17:30] LABS: Band Neutrophils 16 % (0-10); Eosinophils 2 % (0-10); Lymphocytes 14 % (20-55); Macrocytosis 1+; Metamyelocytes 2 %; Nucleated Red Blood Cells 7 (0-5); Platelet Estimate Decreased; Segmented Neutrophils 63 % (50-85); Total Cells Counted 100; Toxic Granulation 1+
[2020-02-06 18:04] LABS: Albumin 1.9 G/DL (3.4-5.0); Calcium 7.3 MG/DL (8.5-10.1); Osmolality,Calculated 276.2 MOS/KG (273-304); Total Protein 5.2 G/DL (6.4-8.3)
[2020-02-06 20:01] VITALS: BP 88/49
[2020-02-06] MEDS ORDERED: PHENYLEPHRINE DRIP 40 MG/250 ML PREMIX IV ONE (20:15)
[2020-02-06 20:19] LABS: ABG Base Excess -19.7 MMOL/L (-2.5-2.5); ABG HCO3 8.3 MMOL/L (20-26); ABG Oxygen Saturation 99.7 % (95-100); ABG PCO2 27.7 MM HG (35-48); ABG PO2 145.4 MM HG (80-95); ABG TCO2 9.1 MMOL/L (23-27)
[2020-02-06] MEDS: PHENYLEPHRINE DRIP 40 MG/250 ML PREMIX IV PRN ×2 (20:21→22:36)
[2020-02-06 20:22] LABS: ABG PH 7.094 (7.35-7.45)
[2020-02-06 21:49] LABS: ABG Base Excess -17.8 MMOL/L (-2.5-2.5); ABG HCO3 10.7 MMOL/L (20-26); ABG Oxygen Saturation 98.9 % (95-100); ABG PCO2 25.4 MM HG (35-48); ABG PH 7.184 (7.35-7.45); ABG TCO2 9.2 MMOL/L (23-27)
[2020-02-06] MEDS ORDERED: NACL 0.22% IV SCH (22:30)
[2020-02-06] MEDS ORDERED: SODIUM BICARB IV SCH (22:30)
[2020-02-06] MEDS ORDERED: DEXTROSE 5% IV SCH (22:30)
[2020-02-06] MEDS ORDERED: PHENYLEPHRINE INJ 160 MG in SODIUM CHLORIDE 0.9% 234 ML IV PRN (23:34)
[2020-02-07] MEDS ORDERED: PHENYLEPHRINE INJ 160 MG in SODIUM CHLORIDE 0.9% 234 ML IV PRN
[2020-02-07] MEDS: INSULIN REGULAR 100 UNIT/ML IV SCH (00:12)
[2020-02-07] MEDS ORDERED: SODIUM BICARBONATE 50 MEQ/50 ML SYRINGE IV ONE (00:13)
[2020-02-07] MEDS ORDERED: CALCIUM CHLORIDE 1,000 MG/10 ML SYRINGE IV ONE (00:13)
[2020-02-07] MEDS ORDERED: EPINEPHrine 1 MG/10 ML SYRINGE ONE (00:13)
== END 2020-02-06 23:44 | disposition expired | DRG 313 ==
LOC: N.ED 08:20 → N.EDINP 08:20 → N.2E 13:30 → SUATTDRO 02-04 11:39 → N.ICU 02-05 02:16
PROVIDERS: ADMIT Internal Medicine; ATTEND Internal Medicine